=== PATIENT | female | born 1965 | race Caucasian/White ===

== ENCOUNTER 2018-01-01 18:40 | Emergency (ER) | payer BC ==
--- NOTE | 2018-01-01 19:18 | EDM.PDOC ---
ED HPI GENERAL MEDICAL PROBLEM - General Chief Complaint: Gastrointestinal Problem Stated Complaint: vomiting Time Seen by Provider: 01/01/18 18:58 - History of Present Illness INITIAL COMMENTS - FREE TEXT/NARRATIVE: Patient is 51-year-old female accompanied by her presented today to the emergency department for evaluation of abdominal pain for last 2 days. She stated that she developed periumbilical pain approximately 2 days ago which has been intermittent in nature and associated with multiple episode of bilious vomiting. Currently she is rating her discomfort level about 4 or 5 on a scale of 0-10. Patient has no radiation. No specific aggravating factors contributing to her pain while somewhat alleviated by vomiting. She denies any out of the ordinary for eaten outside the home. She further denies any recent traveling, sick contacts, fever, chills, diarrhea, dysuria, urinary frequency or urgency, low back pain, or vaginal bleeding. She stated that she does have intermittent constipation and last bowel movement was 2 days ago however she stated that yesterday she had very little bowel movement. She denies any other concern at this time. 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 ED EXAM, GI/ABD - Physical Exam Exam: See Below Exam Limited By: No Limitations General Appearance: Alert, WD/WN, No Apparent Distress Throat/Mouth: Normal Inspection, Normal Lips, Normal Teeth, Normal Gums, Normal Oropharynx, Normal Voice, No Airway Compromise Head: Atraumatic, Normocephalic Neck: Normal Inspection, Supple, Non-Tender, Full Range of Motion Respiratory/Chest: No Respiratory Distress, Lungs Clear, Normal Breath Sounds Cardiovascular: Normal Peripheral Pulses, Regular Rate, Rhythm GI/Abdominal Exam: Normal Bowel Sounds, Soft, No Organomegaly, No Distention, No Abnormal Bruit, No Mass, Pelvis Stable, Other (Diffuse tenderness to palpation or periumbilical region, right lower quadrant. No rebound or guarding. No peritoneal signs.) (Female) Exam: Deferred Extremities: Normal Inspection, Normal Range of Motion, Non-Tender, Normal Capillary Refill, No Pedal Edema Neurological: Alert, Oriented, Normal Cognition Psychiatric: Normal Affect, Normal Mood Skin Exam: Warm, Dry, Intact, Normal Color, No Rash Course - Vital Signs Last Recorded V/S: Last Vital Signs Temp 37.3 C 01/01/18 21:40 Pulse 78 01/01/18 21:40 Resp 15 01/01/18 21:40 BP 103/77 01/01/18 21:40 Pulse Ox 98 01/01/18 21:40 - Orders/Labs/Meds Orders: Active Orders 24 hr Category Date Time Status Abdomen Pelvis wo Cont [CT] Stat Exams 01/01/18 19:09 Taken Labs: Laboratory Tests 01/01/18 01/01/18 01/01/18 Range/Units 19:37 19:37 19:37 WBC 8.29 (3.98-10.04) K/mm3 RBC 4.73 (3.98-5.22) M/mm3 Hgb 13.9 (11.2-15.7) gm/L Hct 41.1 (34.1-44.9) % MCV 86.9 (79.4-94.8) fl MCH 29.4 (25.6-32.2) pg MCHC 33.8 (32.2-35.5) g/dl RDW Std Deviation 42.1 (36.4-46.3) fL Plt Count 234 (182-369) K/mm3 MPV 9.1 L (9.4-12.3) fl Neut % (Auto) 68.5 (34.0-71.1) % Lymph % (Auto) 20.0 (19.3-51.7) % Dickens % (Auto) 9.7 (4.7-12.5) % Eos % (Auto) 1.4 (0.7-5.8) Baso % (Auto) 0.2 (0.1-1.2) % Neut # (Auto) 5.67 (1.56-6.13) K/mm3 Lymph # (Auto) 1.66 (1.18-3.74) K/mm3 Dickens # (Auto) 0.80 H (0.24-0.36) K/mm3 Eos # (Auto) 0.12 (0.04-0.36) K/mm3 Baso # (Auto) 0.02 (0.01-0.08) K/mm3 Sodium 144 (136-145) mEq/L Potassium 3.6 (3.5-5.1) mEq/L Chloride 106 (98-107) mEq/L Carbon Dioxide 31 (21-32) mEq/L Anion Gap 10.6 (5-15) BUN 17 (7-18) mg/dL Creatinine 0.9 (0.55-1.02) mg/dL Est Cr Clr Drug Dosing 65.05 mL/min Estimated GFR (MDRD) > 60 (>60) mL/min BUN/Creatinine Ratio 18.9 H (14-18) Glucose 102 (74-106) mg/dL Lactic Acid 0.7 (0.4-2.0) mmol/L Calcium 9.3 (8.5-10.1) mg/dL Total Bilirubin 0.4 (0.2-1.0) mg/dL AST 13 L (15-37) U/L ALT 23 (14-59) U/L Alkaline Phosphatase 72 (46-116) U/L Total Protein 6.7 (6.4-8.2) g/dl Albumin 3.5 (3.4-5.0) g/dl Globulin 3.2 gm/dL Albumin/Globulin Ratio 1.1 (1-2) Lipase 135 (73-393) U/L Urine Color (Yellow) Urine Appearance (Clear) Urine pH (5.0-8.0) Ur Specific [place] (1.005-1.030) Urine Protein (Negative) Urine Glucose (UA) (Negative) Urine Ketones (Negative) Urine Occult Blood (Negative) Urine Nitrite (Negative) Urine Bilirubin (Negative) Urine Urobilinogen (0.2-1.0) Ur Leukocyte Esterase (Negative) Urine RBC (0-5) /hpf Urine WBC (0-5) /hpf Ur Epithelial Cells (0-5) /hpf Urine Bacteria (FEW) /hpf Urine Mucus (FEW) /hpf 01/01/18 Range/Units 19:41 WBC (3.98-10.04) K/mm3 RBC (3.98-5.22) M/mm3 Hgb (11.2-15.7) gm/L Hct (34.1-44.9) % MCV (79.4-94.8) fl MCH (25.6-32.2) pg MCHC (32.2-35.5) g/dl RDW Std Deviation (36.4-46.3) fL Plt Count (182-369) K/mm3 MPV (9.4-12.3) fl Neut % (Auto) (34.0-71.1) % Lymph % (Auto) (19.3-51.7) % Dickens % (Auto) (4.7-12.5) % Eos % (Auto) (0.7-5.8) Baso % (Auto) (0.1-1.2) % Neut # (Auto) (1.56-6.13) K/mm3 Lymph # (Auto) (1.18-3.74) K/mm3 Dickens # (Auto) (0.24-0.36) K/mm3 Eos # (Auto) (0.04-0.36) K/mm3 Baso # (Auto) (0.01-0.08) K/mm3 Sodium (136-145) mEq/L Potassium (3.5-5.1) mEq/L Chloride (98-107) mEq/L Carbon Dioxide (21-32) mEq/L Anion Gap (5-15) BUN (7-18) mg/dL Creatinine (0.55-1.02) mg/dL Est Cr Clr Drug Dosing mL/min Estimated GFR (MDRD) (>60) mL/min BUN/Creatinine Ratio (14-18) Glucose (74-106) mg/dL Lactic Acid (0.4-2.0) mmol/L Calcium (8.5-10.1) mg/dL Total Bilirubin (0.2-1.0) mg/dL AST (15-37) U/L ALT (14-59) U/L Alkaline Phosphatase (46-116) U/L Total Protein (6.4-8.2) g/dl Albumin (3.4-5.0) g/dl Globulin gm/dL Albumin/Globulin Ratio (1-2) Lipase (73-393) U/L Urine Color Yellow (Yellow) Urine Appearance Clear (Clear) Urine pH 6.0 (5.0-8.0) Ur Specific Newton 1.020 (1.005-1.030) Urine Protein Negative (Negative) Urine Glucose (UA) Negative (Negative) Urine Ketones 2+ H (Negative) Urine Occult Blood Negative (Negative) Urine Nitrite Negative (Negative) Urine Bilirubin Negative (Negative) Urine Urobilinogen 0.2 (0.2-1.0) Ur Leukocyte Esterase Negative (Negative) Urine RBC 0-5 (0-5) /hpf Urine WBC 5-10 H (0-5) /hpf Ur Epithelial Cells 0-5 (0-5) /hpf Urine Bacteria Few (FEW) /hpf Urine Mucus Few (FEW) /hpf Meds: Medications Discontinued Medications Generic Name Dose Route Start Last Admin Trade Name Catalina PRN Reason Stop Dose Admin Sodium Chloride 1,000 mls @ 999 mls/hr 01/01/18 19:56 01/01/18 20:25 Normal Saline IV 01/01/18 20:56 999 mls/hr ONETIME ONE Administration Morphine Sulfate 2 mg 01/01/18 19:56 01/01/18 21:45 Morphine IVPUSH 01/01/18 19:57 Not Given ONETIME ONE Ondansetron HCl 4 mg 01/01/18 19:56 01/01/18 20:25 Zofran IVPUSH 01/01/18 19:57 4 mg ONETIME ONE Administration - Re-Assessments/Exams Free Text/Narrative Re-Assessment/Exam: 01/01/18 21:00 Patient is reevaluated at this time. Patient is alert, laying on a stretcher in no acute distress. Abdominal exam: Normal bowel sounds present in all 4 quadrants, no tenderness to palpation in all 4 quadrant, no distention noted. CT scan negative for any acute intra-abdominal pathology. Explained the results of the labs and CT scan with patient and family. Explained patient to return immediately to the emergency department if her pain is persistent, or develop any worsening symptoms including vomiting, fever greater than 100.4F, chest pain, short of breath, abdominal distention, or back pain. She has been advised to return to the emergency Department within 8- 12 hours for reevaluation of abdominal pain. She verbalized understanding of the given instructions. No other concerns voiced at this time. Departure - Departure Time of Disposition: 21:23 Disposition: Home, Self-Care 01 Condition: Good Clinical Impression: Nonspecific abdominal pain, Vomiting - Discharge Information Prescriptions: Ondansetron [Zofran ODT] 4 mg PO Q8H PRN #15 tab.dis PRN Reason: Nausea/Vomiting Instructions: Abdominal Pain, Adult, [id number], Nausea and Vomiting, Adult Referrals: Lindsey Coreas PA [Primary Care Provider] - 1 Day (Please call your primary care provider for reevaluation TODAY emergency room visit. Highly advised to return to the emergency department if her pain persistent or worsening of her symptoms.) Forms: ED Department Discharge - My Orders Last 24 Hours: My Active Orders 01/01/18 19:09 Abdomen Pelvis wo Cont [CT] Stat - Assessment/Plan Last 24 Hours: My Active Orders 01/01/18 19:09 Abdomen Pelvis wo Cont [CT] Stat
[2018-01-01] MEDS ORDERED: Morphine 2 MG/ML Syringe IVPUSH ONE (19:56)
[2018-01-01] MEDS ORDERED: Ondansetron 4 MG/2 ML SDV IVPUSH ONE (19:56)
[2018-01-01] MEDS ORDERED: Sodium Chloride 0.9% 1,000 ML IV ONE (19:56)
--- NOTE | 2018-01-02 07:46 | CT ---
CT abdomen and pelvis Technique: Multiple axial sections were obtained from above the dome of the diaphragm inferiorly through the pubic symphysis. Intravenous and oral contrast was not utilized. Comparison: No prior abdominal imaging. Findings: Visualized lung bases show nothing acute. Noncontrast appearance of the liver appears within normal limits. Spleen appears within normal limits. Adrenal glands show no nodule. Kidneys show no abnormal calcifications. No ureteral dilatation or ureteral stone is seen. Pancreas appears normal. Gallbladder contains no calcified gallstones. Aorta shows no aneurysm. No retroperitoneal adenopathy or mesenteric abnormalities are seen. No pelvic mass or adenopathy is seen. No free fluid or inflammatory change is seen. Appendix is not seen with certainty. Bone window settings were reviewed which show mild degenerative change scattered within the spine. No acute osseous abnormality is seen. Impression: 1. Nothing acute is identified on noncontrast CT study of the abdomen and pelvis. Diagnostic code #2 I agree with preliminary report issued by [facility] ([facility] report finalized on 01/01/18, 9:45 PM Central Time)
== END 2018-01-01 21:40 | disposition home or self-care (01) ==
LOC: JD.ED 18:40
DX: R10.33 Periumbilical pain (principal); R11.10 Vomiting, unspecified
CPT/HCPCS: 36415; 74176; 80053; 81001; 83605; 83690; 85025; 96361; 96374; 99284; J2405; J7040

== ENCOUNTER 2021-10-27 09:21 | Day surgery (SDC) | payer BC ==
[~2021-10-27 09:21] MED LIST: Lactated Ringers 1,000 ML IV SCH; Lidocaine 1%/Sod Bicarbonate in NS 8.4% 1 ML Syringe IDERM PRN; Sodium Chloride 0.9% 10 ML Syringe FLUSH PRN; Sodium Chloride 0.9% 10 ML Syringe FLUSH SCH
[2021-10-27] MEDS ORDERED: Propofol 200 MG/20 ML SDV ONE ×2 (10:26→10:40)
[2021-10-27] MEDS ORDERED: Lidocaine 1% 4 ML ONE (10:26)
== END 2021-10-27 11:59 | disposition home or self-care (01) ==
LOC: JD.SDS 09:21
PROVIDERS: ATTEND Surgery
DX: Z12.11 Encounter for screening for malignant neoplasm of colon (principal); K64.8 Other hemorrhoids; K63.89 Other specified diseases of intestine; K59.09 Other constipation; M50.30 Other cervical disc degeneration, unspecified cervical region; M54.50 Low back pain, unspecified; G89.29 Other chronic pain; E83.50 Unspecified disorder of calcium metabolism; Z79.899 Other long term (current) drug therapy; Z98.890 Other specified postprocedural states; Z90.710 Acquired absence of both cervix and uterus; F15.90 Other stimulant use, unspecified, uncomplicated
CPT/HCPCS: 45378; J2704; J7120

== ENCOUNTER 2022-11-28 12:26 | Emergency (ER) | payer BC ==
[2022-11-28 14:06] LABS: BASOPHILS PERCENT AUTO 0.4 % (0.0-1.0); EOSINOPHILS ABSOLUTE AUTO 0.1 K/mm3 (0.0-0.4); HEMATOCRIT 39.4 % (37.0-47.0); HEMOGLOBIN 13.4 gm/dl (12.0-16.0); IMMATURE GRAN ABSOLUTE AUTO 0.03 K/mm3 (0.00-0.05); IMMATURE GRAN PERCENT AUTO 0.4 % (0.0-0.4); LYMPHOCYTES ABSOLUTE AUTO 1.8 K/mm3 (1.0-4.8); LYMPHOCYTES PERCENT AUTO 25.1 % (24.0-44.0); MEAN CORPUSCULAR HEMOGLOBIN 30.7 pg (28.0-32.0); MEAN CORPUSCULAR VOLUME 90.4 fl (83.0-99.0); MEAN PLATELET VOLUME 8.9 fl (9.4-12.3); MONOCYTES ABSOLUTE AUTO 0.5 K/mm3 (0.0-0.8); MONOCYTES PERCENT AUTO 6.7 % (0.0-8.0); NEUTROPHILS ABSOLUTE AUTO 4.7 K/mm3 (1.8-7.7); NEUTROPHILS PERCENT AUTO 66.4 % (41.0-71.0); PLATELET COUNT,PLT 226 K/mm3 (150-400); RED BLOOD CELL COUNT 4.36 M/mm3 (4.10-5.30); WHITE BLOOD CELL COUNT,WBC 7.12 K/mm3 (3.9-11.3)
[2022-11-28 14:40] LABS: A/G RATIO 1.1 (1-2); ALBUMIN 3.7 g/dl (3.4-5.0); ANION GAP 13.4 (5-15); BILIRUBIN TOTAL 0.2 mg/dL (0.2-1.0); BUN/CREATININE RATIO 18.8 (14-18); CALCIUM 9.4 mg/dL (8.5-10.1); CREATININE 0.8 mg/dL (0.55-1.02); EST CRCL DRUG DOSING (CG) 71.76 mL/min; MAGNESIUM 1.9 mg/dL (1.8-2.4); POTASSIUM,K 4.4 mEq/L (3.5-5.1); TSH 0.787 uIU/mL (0.358-3.74)
== END 2022-11-28 15:30 | disposition home or self-care (01) ==
LOC: JD.ED 12:26
DX: I95.89 Other hypotension (principal); Z79.899 Other long term (current) drug therapy
CPT/HCPCS: 36415; 80053; 83735; 84443; 84484; 85025; 93005; 93010; 99282; 99284

== ENCOUNTER 2023-02-03 10:32 | Observation (INO) | payer BC ==
[2023-02-03 11:31] LABS: APPEARANCE,URINE CLEAR (Clear); BILIRUBIN,URINE 1+ (Negative); COLOR,URINE YELLOW (Yellow); GLUCOSE,URINE NEGATIVE (Negative); KETONES,URINE TRACE (Negative); LEUKOCYTE ESTERASE,URINE NEGATIVE (Negative); NITRITE,URINE NEGATIVE (Negative); OCCULT BLOOD,URINE NEGATIVE (Negative); PROTEIN,URINE 1+ (Negative); UROBILINOGEN,URINE 0.2 (0.2-1.0)
[2023-02-03 11:43] LABS: BASOPHILS PERCENT AUTO 0.3 % (0.0-1.0); EOSINOPHILS PERCENT AUTO 0.1 % (0.0-6.0); HEMOGLOBIN 12.6 gm/dl (12.0-16.0); IMMATURE GRAN ABSOLUTE AUTO 0.06 K/mm3 (0.00-0.05); IMMATURE GRAN PERCENT AUTO 0.4 % (0.0-0.4); LYMPHOCYTES ABSOLUTE AUTO 1.2 K/mm3 (1.0-4.8); MEAN CORPUSCULAR HEMOGLOBIN 30.7 pg (28.0-32.0); MEAN CORPUSCULAR VOLUME 87.8 fl (83.0-99.0); MEAN PLATELET VOLUME 8.9 fl (9.4-12.3); MONOCYTES ABSOLUTE AUTO 1.4 K/mm3 (0.0-0.8); MONOCYTES PERCENT AUTO 8.9 % (0.0-8.0); NEUTROPHILS ABSOLUTE AUTO 12.5 K/mm3 (1.8-7.7); NEUTROPHILS PERCENT AUTO 82.3 % (41.0-71.0); PLATELET COUNT,PLT 237 K/mm3 (150-400); WHITE BLOOD CELL COUNT,WBC 15.19 K/mm3 (3.9-11.3)
[2023-02-03 11:43] LABS: BACTERIA,URINE FEW /hpf (FEW); EPITHELIAL CELLS,URINE 0-5 /hpf (0-5); MUCUS,URINE RARE /hpf (FEW); RBC,URINE 0-5 /hpf (0-5); WBC,URINE 0-5 /hpf (0-5)
[2023-02-03 12:08] LABS: A/G RATIO 1.1 (1-2); ALANINE AMINOTRANSFERASE,ALT 21 U/L (14-59); ALBUMIN 3.3 g/dl (3.4-5.0); ALKALINE PHOSPHATASE 64 U/L (46-116); ANION GAP 13.3 (5-15); ASPARTATE AMNIOTRANSFERASE,AST 14 U/L (15-37); BILIRUBIN TOTAL 0.6 mg/dL (0.2-1.0); BLOOD UREA NITROGEN,BUN 23 mg/dL (7-18); BUN/CREATININE RATIO 25.6 (14-18); CALCIUM 9.3 mg/dL (8.5-10.1); CARBON DIOXIDE,CO2 24 mEq/L (21-32); CHLORIDE,CL 108 mEq/L (98-107); CREATININE 0.9 mg/dL (0.55-1.02); ESTIMATED GFR 74 mL/min (>60); GLUCOSE RANDOM 111 mg/dL (70-99); POTASSIUM,K 4.3 mEq/L (3.5-5.1); PROTEIN TOTAL,TP 6.3 g/dl (6.4-8.2); SODIUM,NA 141 mEq/L (136-145)
[2023-02-03] MEDS ORDERED: Iopamidol 612 MG/ML 100 ML Bottle IVPUSH ONE (13:15)
[2023-02-03] MEDS ORDERED: Sodium Chloride 0.9% 10 ML Syringe FLUSH ONE (13:21)
[2023-02-03] MEDS ORDERED: metroNIDAZOLE/Normal Saline 500 MG in Premix Bag 1 BAG IV ONE (15:00)
[2023-02-03] MEDS: metroNIDAZOLE/Normal Saline 500 MG in Premix Bag 1 BAG IV SCH ×2 (16:24→23:59)
[2023-02-03] MEDS: Heparin Sodium 5,000 Units/ML Vial SUBCUT SCH ×2 (16:27→23:47)
[2023-02-03] MEDS: Acetaminophen 325 MG Tab PO PRN (22:33)
[2023-02-04 05:26] LABS: BASOPHILS PERCENT AUTO 0.4 % (0.0-1.0); EOSINOPHILS ABSOLUTE AUTO 0.1 K/mm3 (0.0-0.4); HEMATOCRIT 32.2 % (37.0-47.0); HEMOGLOBIN 11.3 gm/dl (12.0-16.0); IMMATURE GRAN ABSOLUTE AUTO 0.05 K/mm3 (0.00-0.05); IMMATURE GRAN PERCENT AUTO 0.4 % (0.0-0.4); LYMPHOCYTES ABSOLUTE AUTO 2.2 K/mm3 (1.0-4.8); LYMPHOCYTES PERCENT AUTO 19.1 % (24.0-44.0); MEAN CORPUSCULAR HEMOGLOBIN 30.9 pg (28.0-32.0); MEAN CORPUSCULAR HGB CONC 35.1 g/dl (32.0-36.0); MEAN PLATELET VOLUME 8.9 fl (9.4-12.3); MONOCYTES ABSOLUTE AUTO 0.9 K/mm3 (0.0-0.8); MONOCYTES PERCENT AUTO 8.3 % (0.0-8.0); NEUTROPHILS PERCENT AUTO 70.8 % (41.0-71.0); PLATELET COUNT,PLT 212 K/mm3 (150-400); RED BLOOD CELL COUNT 3.66 M/mm3 (4.10-5.30); WHITE BLOOD CELL COUNT,WBC 11.28 K/mm3 (3.9-11.3)
[2023-02-04 05:47] LABS: ALBUMIN 2.8 g/dl (3.4-5.0); ANION GAP 12.3 (5-15); BILIRUBIN TOTAL 0.4 mg/dL (0.2-1.0); BUN/CREATININE RATIO 16.3 (14-18); CALCIUM 8.6 mg/dL (8.5-10.1); CREATININE 0.8 mg/dL (0.55-1.02); EST CRCL DRUG DOSING (CG) 71.76 mL/min; MAGNESIUM 1.8 mg/dL (1.8-2.4); POTASSIUM,K 3.3 mEq/L (3.5-5.1); PROTEIN TOTAL,TP 5.6 g/dl (6.4-8.2)
[2023-02-04] MEDS ORDERED: ESTRADIOL VAG SCH (06:15)
[2023-02-04] MEDS: Topiramate 25 MG Tab PO SCH ×2 (07:59→21:40)
[2023-02-04] MEDS: metroNIDAZOLE/Normal Saline 500 MG in Premix Bag 1 BAG IV SCH ×3 (08:00→23:00)
[2023-02-04] MEDS: Heparin Sodium 5,000 Units/ML Vial SUBCUT SCH ×3 (08:00→23:00)
[2023-02-04] MEDS: Baclofen 10 MG Tab PO SCH ×3 (08:00→21:42)
[2023-02-04] MEDS: Lidocaine 4% 1 each Patch TOP SCH (08:01)
[2023-02-04] MEDS: Acetaminophen 325 MG Tab PO PRN ×2 (08:03→21:45)
[2023-02-04] MEDS: Pantoprazole 40 MG Tab.CR PO SCH (09:32)
[2023-02-04] MEDS: Venlafaxine 37.5 MG Tab PO SCH (11:12)
[2023-02-04] MEDS: Docusate Sodium 100 MG Cap PO SCH ×2 (13:47→21:40)
[2023-02-04] MEDS: ARMOUR THYROID 15 MG PO SCH (13:48)
[2023-02-04] MEDS: Linaclotide [Linzess] 290 MCG Capsule *PT OWN MED PO SCH (13:49)
[2023-02-04] MEDS: oxyCODONE 5 MG Tab PO PRN ×2 (15:20→21:44)
[2023-02-04] MEDS: Magnesium Hydroxide 400 MG/5 ML Susp 30 ML Cup PO PRN (21:42)
[2023-02-05] MEDS: oxyCODONE 5 MG Tab PO PRN (04:23)
[2023-02-05] MEDS: Acetaminophen 325 MG Tab PO PRN (04:23)
[2023-02-05] MEDS: Heparin Sodium 5,000 Units/ML Vial SUBCUT SCH ×3 (06:38→16:13)
[2023-02-05] MEDS: Pantoprazole 40 MG Tab.CR PO SCH (06:38)
[2023-02-05] MEDS: Magnesium Hydroxide 400 MG/5 ML Susp 30 ML Cup PO PRN (08:22)
[2023-02-05] MEDS: Lidocaine 4% 1 each Patch TOP SCH (08:22)
[2023-02-05] MEDS: Baclofen 10 MG Tab PO SCH ×2 (08:24→20:33)
[2023-02-05] MEDS: Docusate Sodium 100 MG Cap PO SCH ×2 (08:25→20:33)
[2023-02-05] MEDS: Venlafaxine 37.5 MG Tab PO SCH (08:25)
[2023-02-05] MEDS: Topiramate 25 MG Tab PO SCH ×2 (08:25→20:33)
[2023-02-05] MEDS: ARMOUR THYROID 15 MG PO SCH (08:30)
[2023-02-05] MEDS: Linaclotide [Linzess] 290 MCG Capsule *PT OWN MED PO SCH (08:30)
[2023-02-05] MEDS: metroNIDAZOLE/Normal Saline 500 MG in Premix Bag 1 BAG IV SCH ×2 (08:30→16:15)
[2023-02-05] MEDS ORDERED: Magnesium Citrate Solution 296 ML Bottle PO ONE (10:30)
[2023-02-05] MEDS ORDERED: Potassium Chloride 20 MEQ Tab.ER PO ONE (10:30)
[2023-02-06] MEDS: metroNIDAZOLE/Normal Saline 500 MG in Premix Bag 1 BAG IV SCH ×3 (00:06→17:07)
[2023-02-06] MEDS: Heparin Sodium 5,000 Units/ML Vial SUBCUT SCH ×3 (00:07→15:49)
[2023-02-06] MEDS: Pantoprazole 40 MG Tab.CR PO SCH (06:20)
[2023-02-06 06:40] LABS: ANION GAP 14.4 (5-15); BUN/CREATININE RATIO 2.9 (14-18); CALCIUM 9.1 mg/dL (8.5-10.1); CREATININE 0.7 mg/dL (0.55-1.02); EST CRCL DRUG DOSING (CG) 82.01 mL/min; POTASSIUM,K 3.4 mEq/L (3.5-5.1)
[2023-02-06] MEDS: Venlafaxine 37.5 MG Tab PO SCH (08:34)
[2023-02-06] MEDS: Lidocaine 4% 1 each Patch TOP SCH (08:35)
[2023-02-06] MEDS: Docusate Sodium 100 MG Cap PO SCH ×2 (08:35→22:16)
[2023-02-06] MEDS: Topiramate 25 MG Tab PO SCH ×2 (08:35→22:16)
[2023-02-06] MEDS: Baclofen 10 MG Tab PO SCH ×2 (08:36→23:21)
[2023-02-06] MEDS: ARMOUR THYROID 15 MG PO SCH (08:36)
[2023-02-06] MEDS: Linaclotide [Linzess] 290 MCG Capsule *PT OWN MED PO SCH (08:36)
[2023-02-06] MEDS: Magnesium Hydroxide 400 MG/5 ML Susp 30 ML Cup PO PRN (08:37)
[2023-02-06] MEDS ORDERED: Polyethylene Glycol/Electrolytes 4,000 ML Bottle PO ONE (12:00)
[2023-02-06] MEDS: Potassium Chloride 20 MEQ Tab.ER PO SCH (13:36)
[2023-02-06] MEDS ORDERED: Lidocaine 1% 6 ML ONE (19:44)
[2023-02-06] MEDS ORDERED: fentaNYL 250 MCG/5 ML SDV ONE (19:44)
[2023-02-06] MEDS ORDERED: Succinylcholine 200 MG/10 ML MDV ONE (19:44)
[2023-02-06] MEDS ORDERED: Propofol 200 MG/20 ML SDV ONE (19:45)
[2023-02-06] MEDS ORDERED: Bupivacaine 0.5% 30 ML SDV ONE (19:50)
[2023-02-06] MEDS ORDERED: Lidocaine 1% 30 ML SDV ONE (19:50)
[2023-02-06] MEDS ORDERED: Metoclopramide 10 MG/2 ML SDV ONE (19:54)
[2023-02-06] MEDS ORDERED: Ondansetron 4 MG/2 ML SDV ONE (19:54)
[2023-02-06] MEDS ORDERED: Midazolam 1 MG/ML 2 ML SDV ONE (20:04)
[2023-02-06] MEDS: Magnesium Hydroxide 400 MG/5 ML Susp 30 ML Cup PO SCH (22:15)
[2023-02-07] MEDS: Heparin Sodium 5,000 Units/ML Vial SUBCUT SCH ×2 (00:29→08:35)
[2023-02-07] MEDS: metroNIDAZOLE/Normal Saline 500 MG in Premix Bag 1 BAG IV SCH ×2 (00:30→08:35)
[2023-02-07] MEDS: Pantoprazole 40 MG Tab.CR PO SCH (05:06)
[2023-02-07] MEDS: Acetaminophen 325 MG Tab PO PRN (05:06)
[2023-02-07 06:41] LABS: ANION GAP 12.6 (5-15); BUN/CREATININE RATIO 7.5 (14-18); CREATININE 0.8 mg/dL (0.55-1.02); EST CRCL DRUG DOSING (CG) 71.76 mL/min; POTASSIUM,K 3.6 mEq/L (3.5-5.1)
[2023-02-07] MEDS ORDERED: Lactated Ringers 1,000 ML ONE (08:08)
[2023-02-07] MEDS: Potassium Chloride 20 MEQ Tab.ER PO SCH (08:34)
[2023-02-07] MEDS: Venlafaxine 37.5 MG Tab PO SCH (08:34)
[2023-02-07] MEDS: Magnesium Hydroxide 400 MG/5 ML Susp 30 ML Cup PO SCH (08:34)
[2023-02-07] MEDS: Topiramate 25 MG Tab PO SCH (08:35)
[2023-02-07] MEDS: Docusate Sodium 100 MG Cap PO SCH (08:35)
[2023-02-07] MEDS: Lidocaine 4% 1 each Patch TOP SCH (08:36)
[2023-02-07] MEDS: Linaclotide [Linzess] 290 MCG Capsule *PT OWN MED PO SCH (08:37)
[2023-02-07] MEDS: ARMOUR THYROID 15 MG PO SCH (08:37)
== END 2023-02-07 13:29 | disposition home or self-care (01) ==
LOC: JD.ED 10:32 → JD.MS 15:45
PROVIDERS: ADMIT Internal Medicine; ATTEND Internal Medicine
DX: K52.89 Other specified noninfective gastroenteritis and colitis (principal); D72.829 Elevated white blood cell count, unspecified; R33.9 Retention of urine, unspecified; R73.9 Hyperglycemia, unspecified; K59.04 Chronic idiopathic constipation; E03.9 Hypothyroidism, unspecified; Z90.710 Acquired absence of both cervix and uterus; Z79.890 Hormone replacement therapy; Z79.899 Other long term (current) drug therapy
CPT/HCPCS: 00902; 36415; 51701; 51798; 72132; 72132-26; 74018; 74018-26; 80048; 80053; 81001; 83735; 85025; 86140; 93005; 96365; 96366; 96372; 96376; 99222; 99231; 99232; 99285; 99285-25; A9270-GY; C1758; G0378; J0330; J1644; J1836; J2250; J2405; J2704; J2765; J3010; J3490; J7120; Q9967